=== PATIENT | male | born 1950 | race African-American/Black ===

== ENCOUNTER 2021-06-29 10:10 | Emergency (ER) | payer OTHER ==
[2021-06-29 10:23] VITALS: BP 139/78; PULSE 93; TEMP 98.4; BMI 26.9
[2021-06-29] MEDS ORDERED: ACETAMINOPHEN 325 MG TABLET (FP) PO ONE (14:23)
[2021-06-29] MEDS ORDERED: KETOROLAC TROMETHAMINE 15 MG/ML VIAL IM ONE (14:23)
[2021-06-29] MEDS ORDERED: KETOROLAC TROMETHAMINE 30 MG/1 ML VIAL ONE (14:44)
[2021-06-29] MEDS ORDERED: ACETAMINOPHEN 325 MG TABLET (FP) ONE (14:44)
== END 2021-06-29 15:11 | disposition home or self-care (01) ==
LOC: JERFT 10:10
PROC: 3E0233Z Introduction of Anti-inflammatory into Muscle, Percutaneous Approach (ICD-10-PCS; principal; 2021-06-29)
DX: S93.491A Sprain of other ligament of right ankle, initial encounter (principal); W22.8XXA Striking against or struck by other objects, initial encounter
CPT/HCPCS: 73610-TC-RT-FY; 73630-TC-RT-FY; 99284-25